=== PATIENT | female | born 1955 | race African-American/Black ===

== ENCOUNTER 2024-04-14 14:12 | Emergency (ER) | payer MEDICARE, OTHER ==
[2024-04-14 15:35] LABS: INR-International Normal Ratio 1.6; PTT 33.5 sec (22.0-33.0); Prothrombin Time 17.1 sec (9.5-12.1)
[2024-04-14 15:41] LABS: ALT (SGPT) 53 U/L (8-55); AST (SGOT) 62 U/L (5-34); Albumin 2.4 g/dL (3.4-4.8); Alkaline Phosphatase 128 U/L (40-110); Anion Gap 18 mmol/L (10-20); BUN (Urea Nitrogen) 13 mg/dL (9.8-20.1); Calc. Creatinine Clearance 0 mL/min (70-130); Calcium 9.3 mg/dL (7.8-10.44); Carbon Dioxide 21 mmol/L (23-31); Chloride 105 mmol/L (98-107); Estimated GFR 36; Globulin 4.8 g/dL (2.4-3.5); Glucose 73 mg/dL (80-115); Magnesium 2.1 mg/dL (1.6-2.6); Potassium 3.5 mmol/L (3.5-5.1); Protein, Total 7.2 g/dL (5.8-8.1); Sodium 140 mmol/L (136-145)
[2024-04-14 15:52] LABS: Bilirubin, Total 28.9 mg/dL (0.2-1.2)
[2024-04-14 15:57] LABS: #Basophils 0.05 10x3/uL (0.0-0.2); #Eosinophils 0.07 10x3/uL (0.0-0.5); #Monocytes 0.98 10x3/uL (0.0-1.1); #Neutrophils 2.66 10x3/uL (1.5-8.4); %Basophils 0.9 % (0.0-2.0); %Eosinophils 1.3 % (0.0-6.0); %Lymphocytes 31.2 % (18.0-47.0); %Monocytes 17.9 % (0.0-10.0); %Neutrophils 48.5 % (40.0-75.0); Hematocrit 25.1 % (34.9-44.5); Hemoglobin 9.2 g/dL (12.0-15.5); Mean Corpuscular HGB CONC 36.7 g/dL (32.0-36.0); Mean Corpuscular Hemoglobin 25.8 pg (27.0-33.0); Mean Corpuscular Volume 70.5 fL (81.6-98.3); Platelet Count 253 10x3/uL (150-450); RBC Distribution Width 21.5 % (11.5-14.5); Red Blood Cell (RBC) Count 3.56 10x6/uL (3.90-5.03); White Blood Cell (WBC) Count 5.48 10x3/uL (3.5-10.5)
[2024-04-14 16:00] LABS: Lipase Less than 4 U/L (8-78)
[2024-04-14] MEDS ORDERED: Furosemide 40 MG (4 mL) VIAL ONE (16:25)
== END 2024-04-14 16:55 | disposition home or self-care (01) ==
LOC: CSHERS 14:12
DX: J90 Pleural effusion, not elsewhere classified (principal); E80.6 Other disorders of bilirubin metabolism; I11.0 Hypertensive heart disease with heart failure; I50.9 Heart failure, unspecified; J44.9 Chronic obstructive pulmonary disease, unspecified; Z79.82 Long term (current) use of aspirin; Z79.51 Long term (current) use of inhaled steroids
CPT/HCPCS: 71045; 74177; 80053; 83690; 83735; 83880; 85025; 85610; 85730; 86850; 86900; 86901; J1940